=== PATIENT | male | born 2000 | race African-American/Black ===

== ENCOUNTER 2020-07-29 00:23 | Emergency (ER) | payer OTHER, SELFPAY ==
[2020-07-29] MEDS ORDERED: Fentanyl 100 MCG/2 ML VIAL ONE (00:30)
[2020-07-29 00:41] LABS: #Basophils 0.1 thou/uL (0.0-0.2); #Eosinphils 0.1 thou/uL (0.0-0.7); #Lymphocytes 2.8 thou/uL (1.20-3.40); #Monocytes 0.6 thou/uL (0.11-0.59); #Neutrophils 3.3 thou/uL (1.40-6.50); %Basophils 1.8 % (0.0-1.0); %Eosinophils 0.7 % (0.0-10.0); %Lymphocytes 40.5 % (28.0-48.0); %Monocytes 8.7 % (0.0-4.0); %Neutrophils 48.2 % (31.0-61.0); Mean Corpuscular HGB CONC 33.3 g/dL (32.0-36.0); Mean Corpuscular Hemoglobin 29.2 pg (25.0-35.0); Mean Corpuscular Volume 87.7 fL (78.0-98.0); Mean Platelet Volume 8.4 fL (7.4-10.4); Platelet Count 204 thou/uL (130-400); RBC Distribution Width 12.4 % (11.5-14.5); Red Blood Cell (RBC) Count 5.12 mill/uL (4.00-5.20); White Blood Cell (WBC) Count 6.8 thou/uL (4.8-10.8)
[2020-07-29 01:01] LABS: ALT (SGPT) 23 U/L (8-55); AST (SGOT) 24 U/L (10-45); Albumin 4.8 g/dL (3.5-5.0); Alkaline Phosphatase 48 U/L (50-130); Anion Gap 16 mmol/L (10-20); BUN (Urea Nitrogen) 10 mg/dL (8.4-21.0); Bilirubin, Total 0.6 mg/dL (0.2-1.2); Calc. Creatinine Clearance 0 mL/min (70-130); Carbon Dioxide 24 mmol/L (22-29); Chloride 105 mmol/L (98-107); Estimated GFR-MDRD Greater than 90; Globulin 2.9 g/dL (2.4-3.5); Glucose 90 mg/dL (70-105); Lipase 11 U/L (8-78); Potassium 3.2 mmol/L (3.5-5.1); Protein, Total 7.7 g/dL (6.0-8.3); Sodium 142 mmol/L (136-145)
[2020-07-29] MEDS ORDERED: Boostrix 0.5 ML VIAL ONE (01:08)
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
[2020-07-29] MEDS ORDERED: Iopamidol-370 76% 500 ML 1 ML ONE (09:04)
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
== END 2020-07-29 02:03 | disposition home or self-care (01) ==
LOC: ERS 00:23
DX: S09.90XA Unspecified injury of head, initial encounter (principal); S16.1XXA Strain of muscle, fascia and tendon at neck level, initial encounter; S60.511A Abrasion of right hand, initial encounter; V49.9XXA Car occupant (driver) (passenger) injured in unspecified traffic accident, initial encounter
CPT/HCPCS: 70450; 71260; 72125; 74177; 80053; 83690; 85025; 90471; 90715; 96374; G0390; J3010; Q9967